=== PATIENT | female | born 1970 | race Caucasian/White ===

== ENCOUNTER 2023-02-24 08:58 | Outpatient (REF) | payer OTHER, SELFPAY ==
--- NOTE | ~2023-02-24 | XR_ITS ---
EXAMINATION: XR WRIST, LEFT XR HAND, LEFT CLINICAL INFORMATION: Pain COMPARISON: None available. TECHNIQUE: PA, lateral, and oblique views of the left wrist and PA, lateral, and oblique views of the left hand FINDINGS: LEFT WRIST: The bones and soft tissues are normal. No fracture. Alignment is anatomic. Joint spaces are maintained. No erosions or soft tissue calcifications. LEFT HAND: The bones and soft tissues are normal. No fracture. Alignment is anatomic. Joint spaces are maintained. No erosions or soft tissue calcifications. XR/XR hand wrist LT IMPRESSION: Normal left hand and wrist.
--- NOTE | ~2023-02-24 | XR_ITS ---
EXAMINATION: XR WRIST, RIGHT XR HAND, RIGHT CLINICAL INFORMATION: Pain COMPARISON: None available. TECHNIQUE: PA, lateral, and oblique views of the right wrist and PA, lateral, and oblique views of the right hand FINDINGS: RIGHT WRIST: The bones and soft tissues are normal. No fracture. Alignment is anatomic. Joint spaces are maintained. No erosions or soft tissue calcifications. RIGHT HAND: The bones and soft tissues are normal. No fracture. Alignment is anatomic. Joint spaces are maintained. No erosions or soft tissue calcifications. XR/XR hand wrist RT IMPRESSION: Normal right hand and wrist.
--- NOTE | ~2023-02-24 | XR_ITS ---
EXAMINATION: XR FOOT, RIGHT CLINICAL INFORMATION: Pain in right foot COMPARISON: None available. TECHNIQUE: AP, lateral, and oblique views of the right foot. FINDINGS: The bones and soft tissues are normal. No fracture. Alignment is anatomic. Joint spaces are maintained. There is plantar calcaneal spur XR/XR foot RT min 3V IMPRESSION: Plantar calcaneal spur
--- NOTE | ~2023-02-24 | XR_ITS ---
EXAMINATION: XR FOOT, LEFT CLINICAL INFORMATION: Pain in left foot COMPARISON: None available. TECHNIQUE: AP, lateral, and oblique views of the left foot. FINDINGS: The bones and soft tissues are normal. No fracture. Alignment is anatomic. Joint spaces are maintained. There is small plantar calcaneal spur XR/XR foot LT min 3V IMPRESSION: Small plantar calcaneus spur
[2023-02-24 10:19] LABS: MANUAL DIFF FLAG NO
[2023-02-24 10:30] LABS: Basophils Absolute Auto 0.1 X10*3/uL (0.0-0.2); Eosinophils Absolute Auto 0.4 X10*3/uL (0.0-0.4); Eosinophils Percent Auto 5.8 % (0-4); Hematocrit 38.6 % (37.0-47.0); Hemoglobin 12.1 g/dl (12.0-16.0); Imm Gran Abs Auto 0.04 X10*3/uL (0.00-0.03); Imm Gran Pct Auto 0.7 % (0.0-0.4); Lymphocytes Absolute Auto 1.8 X10*3/uL (1.2-4.9); Lymphocytes Percent Auto 30.2 % (20-40); Mean Corpuscular HGB Conc 31.3 g/dl (31.0-35.0); Mean Corpuscular Hemoglobin 27.7 pg (27.0-33.0); Mean Corpuscular Volume 88.3 fL (80.0-98.0); Mean Platelet Volume 9.8 fL (9.4-12.3); Monocytes Absolute Auto 0.5 X10*3/uL (0.1-1.2); Monocytes Percent Auto 7.5 % (2-11); Neutrophils Absolute Auto 3.3 x10*3/uL (2.0-8.3); Neutrophils Percent Auto 54.8 % (45-73); Platelet Count 182 X10*3/uL (160-400); Red Blood Count 4.37 X10*6/uL (4.20-5.50); Red Cell Distribution Width 14.3 % (11.0-16.0)
[2023-02-24 11:19] LABS: Alanine Aminotransferase 12 U/L (0-31); Alkaline Phosphatase 59 U/L (39-117); Anion Gap 11 (12-20); Aspartate Amino Transferase 17 U/L (5-31); Bilirubin Total 0.3 mg/dL (0.0-1.0); Blood Urea Nitrogen 21 mg/dL (9-16); C Reactive Protein 0.38 mg/dL (< or = 0.50); Calcium 9.6 mg/dL (8.4-10.2); Carbon Dioxide 25 mmol/L (22-29); Chloride 110 mmol/L (96-108); Estimated Glomerular Filt Rate 49; Glucose Random 94 mg/dL (60-115); Potassium 4.5 mmol/L (3.3-5.1); Sodium 141 mmol/L (135-145); Total Protein 7.1 g/dL (6.5-8.0)
[2023-02-24 11:30] LABS: HBS Num1 0.57 mIU/mL (0-7.99); HBc Num1 0.12 S/CO (0.00-0.79); HBsAGNum1 0.27 S/CO (0.00-0.99); Hepatitis A Antibody IgM 0.22 Index (0-0.79); Hepatitis B Core Antibody Nonreactive (Nonreactive); Hepatitis B Surface Antigen Negative (Negative); ~HepC Num1 0.18 S/CO (0.00-0.79); ~Hepatitis A Antibody IgM Nonreactive (Nonreactive); ~Hepatitis B Surface Antibody NONREACTIVE (Nonreactive); ~Hepatitis C Antibody Nonreactive (Nonreactive)
[2023-02-24 11:52] LABS: Rheumatoid Factor < 13.0 IU/mL (<15.0)
[2023-02-25 06:42] LABS: Erythrocyte Sedimentation Rate 7 MM/HR (0-20)
[2023-02-27 11:53] LABS: Prot Elec - Albumin 4.2 g/dL (3.8-4.8); Prot Elec - Alpha1 0.3 g/dL (0.2-0.3); Prot Elec - Alpha2 0.5 g/dL (0.5-0.9); Prot Elec - Beta 1 0.5 g/dL (0.4-0.6); Prot Elec - Beta 2 0.3 g/dL (0.2-0.5); Prot Elec - Gamma 1.1 g/dL (0.8-1.7)
[2023-02-28 10:54] LABS: Cyclic Citrullinated Peptide <16 UNITS
[2023-02-28 12:48] LABS: IgA 185 mg/dL (47-310); IgG 1181 mg/dL (600-1640); IgM 184 mg/dL (50-300)
== END 2023-02-24 08:59 | disposition home or self-care (01) ==
LOC: HO.XRAY 08:58
PROVIDERS: PCP Nurse Practitioner Adult Health; Visit Provider Student in an Organized Health Care Education/Training Program
DX: Z11.59 Encounter for screening for other viral diseases (principal); L40.50 Arthropathic psoriasis, unspecified; M25.50 Pain in unspecified joint; Z72.89 Other problems related to lifestyle
CPT/HCPCS: 36415; 73110; 73130; 73630; 80053; 82784; 84165; 85025; 85652; 86140; 86200; 86334; 86431; 86704; 86706; 86709; 86803; 87340

== ENCOUNTER 2023-02-24 08:58 | Outpatient (AMB) | payer OTHER, SELFPAY ==
[2023-02-24 09:03] VITALS: BP 132/78; PULSE 90; TEMP 36.3; O2SAT 96; BMI 38.5
--- NOTE | 2023-02-24 09:03 | A.OFFVIS_ITS ---
Intake Vital Signs 02/24/23 09:03 Height 5 ft 7 in Weight 245 lb 13.047 oz BMI 38.5 BP 132/78 Blood Pressure Location Rt brachial Position Sitting Pulse 90 Pulse Source Pulse Oximeter Temp 97.3 F Temp Source Skin Pulse Oximetry (%) 96 Intake Visit Reasons: Psoriatic Arthritis Intake Note: * New pt presents today for PsA consult. * Reports this is her 3rd production lead she sees. * Saw Rhe[facility] in 2015 and [facility] Dr Farfan Computer Assembler Required: No Accompanied by: Self / Same As Patient Allergies lanolin Adverse Reaction (Mild, Verified 02/24/23 09:05) Skin Sensitivity epinephrine Adverse Reaction (Unknown, Verified 02/24/23 09:06) Panic attacks lisinopril Adverse Reaction (Unknown, Verified 02/24/23 09:06) Cough pseudoephedrine Adverse Reaction (Unknown, Verified 02/24/23 09:05) Unknown Medication List - Last Reconciled 02/24/23 by Grayson Sellers MD albuterol sulfate 90 mcg/actuation 2 puffs inhalation Q4-6H PRN aripiprazole 2 mg PO DAILY clonazepam 0.5 mg PO BID PRN cyclobenzaprine 5 mg PO BEDTIME PRN gabapentin 300 - 600 mg PO BEDTIME tamoxifen 20 mg PO DAILY HPI HPI Comments History of Present Illness Details This is a 52-year-old female who presents for evaluation of multiple joint pain. As a child patient has had intermittent skin rashes that were diagnosed as eczema. As an adult patient kept getting recurrent skin rashes, at some point she had a rash all over her scalp, she was prescribed an antifungal shampoo which was not helpful, she was ultimately prescribed a steroid shampoo and it cleared the rash in 2 days. She was told she might have psoriasis but the diagnosis was never officially confirmed by full service vending driver. Currently she has a skin rash in her left breast, she gets rashes behind her ears and on her scalp. She also has a rash where she wears her ring on her left ring finger. Since her teenage years patient has been having joint and muscle pains. She mentions that she had multiple tendon injuries. She states that she got right tennis elbow multiple times but was never evaluated by a physician. She never receives steroid injections for tennis elbow. She states that she has pain and swelling of both hands, feet. Usually worse in the morning, associated with 15- 20 minutes of morning stiffness. She takes Tylenol and/or Aleve 2 to 3 times a week which provide mild to moderate relief. Stiffness improves with walking around the doing yoga. She mentions that she was prescribed a prednisone course by her PCP at some point which provided dramatic relief. She mentions that she gets these flares of generalized fatigue, generalized pain that happen every few years and can last years at a time. She was evaluated by a production lead in 2014 and was prescribed meloxicam which was not very helpful but caused GI discomfort. She was evaluated by Dr. Frafan once last year but unfortunately Dr. Farfan left practice. She has history of left breast cancer diagnosed 02/2021 s/p lumpectomy and radiation. Currently on tamoxifen. She is unaware of any family history of autoimmune rheumatic disease. Denies any history of DVT/PE [facility] Medical History (Updated 02/24/23 @ 10:05 by Grayson Sellers MD) Bipolar 1 disorder Invasive carcinoma of breast Surgical History S/P lumpectomy, left breast [place] teeth extracted Family History Father Diabetes Bladder tumor Prostate cancer Mother COPD (chronic obstructive pulmonary disease) CVD (cardiovascular disease) Social History Household Members: Spouse Household Members Other:: 4 cats Alcohol intake: current Alcohol intake frequency: a few times a week Alcohol type: beer and wine Patient Tobacco Use Status: Never used Tobacco Current occupational status: employed 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 Female Reproductive History Menstrual Total pregnancies: 0 Review of Systems Const Reports fatigue and Reports weakness Eyes Reports blurry vision Resp Reports wheezing GI Reports no additional complaints Musc Reports arthralgias, Reports joint swelling and Reports stiffness Skin/Breast Reports rash Neuro Reports weakness Psych Reports abnormal sleep pattern and Reports anxiety Endo Reports fatigue Aller/Immun Reports wheezing Physical Exam Vital Signs: Last Vital Signs Temp 97.3 F 02/24/23 09:03 Pulse 90 02/24/23 09:03 BP 132/78 02/24/23 09:03 Pulse Ox 96 02/24/23 09:03 BMI result Body Mass Index 38.5 Const General: cooperative, healthy appearing and comfortable Nutritional Appearance: obese morbidly obese Orientation/consciousness: patient oriented x3 HEENT Head: Yes normocephalic and Yes atraumatic Mouth: moist mucous membranes Resp Effort & Inspection: normal respiratory effort and able to speak in complete sentences Auscultation: clear to auscultation bilaterally Skin Other: Breast inspection was done with medical administrator Regina James present in the room Left breast: A circular reddish crusting rash just inferior to the nipple is seen Bilateral scaling rash behind both ears 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 Right 2nd toe swelling Positive MTP squeeze test left foot Left ankle pain medially without swelling Negative straight leg raise test bilaterally Negative Gui test bilaterally Right knee pain with full extension Marlon test 10-16 cm Results Reviewed Results Reviewed: Labs 09/08? CMP unremarkable except for creatinine 1.11 with GFR of 57 CBC unremarkable Labs 02/2022 ?CRISTINA screen negative CRP normal ESR normal A1c 5.9% Assessment & Plan Assessment & Plan (1) Arthralgia of multiple joints: Code(s): M25.50 - Pain in unspecified joint Plan: This is a 52-year-old female with a past medical history of breast cancer s/p lumpectomy, radiation, currently on tamoxifen who presents for evaluation of multiple joint pain. Patient has history of skin rashes that were not confirmed as psoriasis. Upon evaluation today patient has rashes behind both ears and on left ring finger that is suspicious for psoriasis. Patient has some features of inflammatory arthritis as well as fibromyalgia. Will order comprehensive serology to screen for underlying autoimmune rheumatic disease. Check bilateral hand and feet x-rays Plan I spent 47 minutes reviewing patient's chart, evaluating patient, ordering diagnostic workup, counseling patient and documenting in the chart Orders: Orders Cyclic Citrullinated Peptide Today L40.50 - Arthropathic psoriasis, unspecified Comprehensive Met. Panel Today L40.50 - Arthropathic psoriasis, unspecified C Reactive Protein Today L40.50 - Arthropathic psoriasis, unspecified Rheumatoid Factor Today L40.50 - Arthropathic psoriasis, unspecified Complete Blood Count Auto Diff Today L40.50 - Arthropathic psoriasis, unspecified Erythrocyte Sedimentation Rate Today L40.50 - Arthropathic psoriasis, un specified Immunofixation Pnl, Serum Today L40.50 - Arthropathic psoriasis, unspecified Protein Electrophoresis, Serum Today L40.50 - Arthropathic psoriasis, unspecified Hepatitis A,B,C Profile Today Z11.59 - Encounter for screening for other viral diseases XR foot LT min 3V Today L40.50 - Arthropathic psoriasis, unspecified XR foot RT min 3V Today L40.50 - Arthropathic psoriasis, unspecified XR hand wrist LT Today L40.50 - Arthropathic psoriasis, unspecified XR hand wrist RT Today L40.50 - Arthropathic psoriasis, unspecified Coding Level of Care Code New Pt Level 4 (16567) Diagnoses Arthralgia of multiple joints M25.50
== END 2023-02-24 09:54 | disposition home or self-care (01) ==
PROVIDERS: PCP Nurse Practitioner Adult Health; Visit Provider Student in an Organized Health Care Education/Training Program
DX: M25.50 Pain in unspecified joint (principal)
CPT/HCPCS: 99204

== ENCOUNTER 2023-05-05 09:13 | Outpatient (AMB) | payer OTHER, SELFPAY ==
--- NOTE | 2023-05-05 09:19 | A.OFFVIS_ITS ---
Intake Vital Signs 05/05/23 09:25 Height 5 ft 7 in Weight 247 lb 5.738 oz BMI 38.7 BP 102/70 Blood Pressure Location Rt brachial Position Sitting Pulse 91 Pulse Source Pulse Oximeter Temp 97.5 F Temp Source Skin Pulse Oximetry (%) 100 Oxygen Delivery Method Room Air Intake Visit Reasons: PsA Intake Note: Pt presents today for follow up and test results. Fuel Cell Technician Required: No Accompanied by: Self / Same As Patient Allergies lanolin Adverse Reaction (Mild, Verified 05/05/23 09:25) Skin Sensitivity epinephrine Adverse Reaction (Unknown, Verified 05/05/23 09:25) Panic attacks lisinopril Adverse Reaction (Unknown, Verified 05/05/23 09:25) Cough pseudoephedrine Adverse Reaction (Unknown, Verified 05/05/23 09:25) Unknown Medication List - Last Reconciled 05/05/23 by Grayson Sellers MD albuterol sulfate 90 mcg/actuation 2 puffs inhalation Q4-6H PRN aripiprazole 2 mg PO DAILY clonazepam 0.5 mg PO BID PRN cyclobenzaprine 5 mg PO BEDTIME PRN gabapentin 300 - 600 mg PO BEDTIME tamoxifen 20 mg PO DAILY HPI HPI Comments History of Present Illness Details Patient returns for follow-up after completion of her diagnostic workup. Continues to feel about the same. Continues to have left 2nd toe pain. Intermittent pain in the hands. No recent skin rashes. Initial history: This is a 52-year-old female who presents for evaluation of multiple joint pain. As a child patient has had intermittent skin rashes that were diagnosed as eczema. As an adult patient kept getting recurrent skin rashes, at some point she had a rash all over her scalp, she was prescribed an antifungal shampoo which was not helpful, she was ultimately prescribed a steroid shampoo and it cleared the rash in 2 days. She was told she might have psoriasis but the diagnosis was never officially confirmed by law office manager. Currently she has a skin rash in her left breast, she gets rashes behind her ears and on her scalp. She also has a rash where she wears her ring on her left ring finger. Since her teenage years patient has been having joint and muscle pains. She mentions that she had multiple tendon injuries. She states that she got right tennis elbow multiple times but was never evaluated by a physician. She never receives steroid injections for tennis elbow. She states that she has pain and swelling of both hands, feet. Usually worse in the morning, associated with 15- 20 minutes of morning stiffness. She takes Tylenol and/or Aleve 2 to 3 times a week which provide mild to moderate relief. Stiffness improves with walking around the doing yoga. She mentions that she was prescribed a prednisone course by her PCP at some point which provided dramatic relief. She mentions that she gets these flares of generalized fatigue, generalized pain that happen every few years and can last years at a time. She was evaluated by a safety compliance specialist in 2014 and was prescribed meloxicam which was not very helpful but caused GI discomfort. She was evaluated by Dr. Farfan once last year but unfortunately Dr. Farfan left practice. She has history of left breast cancer diagnosed 02/2021 s/p lumpectomy and radiation. Currently on tamoxifen. She is unaware of any family history of autoimmune rheumatic disease. Denies any history of DVT/PE [facility] Medical History (Updated 05/05/23 @ 11:38 by Grayson Sellers MD) Invasive carcinoma of breast Bipolar 1 disorder Surgical History S/P lumpectomy, left breast [place] teeth extracted Family History Father Diabetes Bladder tumor Prostate cancer Mother COPD (chronic obstructive pulmonary disease) CVD (cardiovascular disease) Social History Household Members: Spouse Household Members Other:: 4 cats Alcohol intake: current Alcohol intake frequency: a few times a week Alcohol type: beer and wine Patient Tobacco Use Status: Never used Tobacco Current occupational status: employed 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 Review of Systems [facility] Reports arthralgias, Reports joint swelling and Reports stiffness Physical Exam Vital Signs: Last Vital Signs Temp 97.5 F 05/05/23 09:25 Pulse 91 05/05/23 09:25 BP 102/70 05/05/23 09:25 Pulse Ox 100 05/05/23 09:25 Oxygen Delivery Method Room Air 05/05/23 09:25 BMI result Body Mass Index 38.7 Const General: cooperative, healthy appearing and comfortable Nutritional Appearance: obese morbidly obese Orientation/consciousness: patient oriented x3 HEENT Head: Yes normocephalic and Yes atraumatic Resp Effort & Inspection: normal respiratory effort and able to speak in complete sentences Neuro General: patient oriented x3 Extrem Other: Left wrist pain with full flexion Negative MCP squeeze test bilaterally no swollen MCPs or PIPs or PIPs Right 3rd extensor tender tenderness Few fibromyalgia tender points Nail pitting in the left ring finger Right 2nd and 3rd MTP tenderness . Right 2nd toe swelling Positive MTP squeeze test left foot Results Reviewed Results Reviewed: Labs 09/08? CMP unremarkable except for creatinine 1.11 with GFR of 57 CBC unremarkable Labs 02/2022 ?CRISTINA screen negative CRP normal ESR normal A1c 5.9% Assessment & Plan Assessment & Plan (1) Arthralgia of multiple joints: Code(s): M25.50 - Pain in unspecified joint Plan: This is a 52-year-old female with a past medical history of breast cancer s/p lumpectomy, radiation, currently on tamoxifen who presents for evaluation of multiple joint pain. Patient has history of skin rashes that were not confirmed as psoriasis. Upon evaluation patient has few tender tendons and swollen right 2nd toe. Comprehensive serology is negative. Labs showing normal inflammatory markers. Normal x-rays of both hands, wrists, feet. Clinical picture suspicious for seronegative arthritis, likely early psoriatic arthritis. Discussed DMARDs. Patient would like to proceed. Start methotrexate 15 mg weekly for 2 weeks then 20 mg weekly plus folic acid 1 mg daily Labs before next visit in 2 months (2) long term care pharmacist methotrexate user: Code(s): Z79.631 - long term care pharmacist (current) use of antimetabolite agent Plan: Monitor safety labs Plan I spent 27 minutes reviewing patient's chart, evaluating patient, ordering diagnostic workup, counseling patient and documenting in the chart Orders: Orders Comprehensive Met. Panel 2 Months Z79.631 - long term care pharmacist (current) use of antimetabolite agent Complete Blood Count Auto Diff 2 Months Z79.631 - halfway (current) use of antimetabolite agent C Reactive Protein 2 Months Z79.631 - halfway (current) use of antimetabolite agent Erythrocyte Sedimentation Rate 2 Months Z79.631 - long term care pharmacist (current) use of antimetabolite agent T Spot TB 2 Months Z11.7 - Encounter for testing for latent tuberculosis infection Medications: New methotrexate sodium Take 6 tabs by mouth once weekly for 2 weeks then 8 tabs once weekly 64 tabs 0RF folic acid 1 mg PO DAILY 90 tabs 1RF Coding Level of Care Code Est Pt Level 4 (75667) Diagnoses Arthralgia of multiple joints M25.50 long term care pharmacist methotrexate user Z79.631
[2023-05-05 09:25] VITALS: BP 102/70; PULSE 91; TEMP 36.4; O2SAT 100; BMI 38.7
== END 2023-05-05 09:52 | disposition home or self-care (01) ==
PROVIDERS: PCP Nurse Practitioner Adult Health; Visit Provider Student in an Organized Health Care Education/Training Program
DX: M25.50 Pain in unspecified joint (principal); Z79.631 Long term (current) use of antimetabolite agent
CPT/HCPCS: 99214

== ENCOUNTER → 2023-05-05 09:13 | Outpatient (BNVA) | payer OTHER, SELFPAY | PROVIDERS: PCP Nurse Practitioner Adult Health; Visit Provider Student in an Organized Health Care Education/Training Program ==

== ENCOUNTER 2023-06-30 10:52 | Outpatient (REF) | payer OTHER, SELFPAY ==
[2023-06-30 12:59] LABS: MANUAL DIFF FLAG NO
[2023-06-30 13:01] LABS: Basophils Percent Auto 0.8 % (0-2); Eosinophils Absolute Auto 0.2 X10*3/uL (0.0-0.4); Eosinophils Percent Auto 5.4 % (0-4); Hematocrit 37.5 % (37.0-47.0); Hemoglobin 11.7 g/dl (12.0-16.0); Imm Gran Abs Auto 0.02 X10*3/uL (0.00-0.03); Imm Gran Pct Auto 0.5 % (0.0-0.4); Lymphocytes Absolute Auto 1.4 X10*3/uL (1.2-4.9); Mean Corpuscular HGB Conc 31.2 g/dl (31.0-35.0); Mean Corpuscular Hemoglobin 27.3 pg (27.0-33.0); Mean Corpuscular Volume 87.6 fL (80.0-98.0); Mean Platelet Volume 10.7 fL (9.4-12.3); Monocytes Absolute Auto 0.3 X10*3/uL (0.1-1.2); Monocytes Percent Auto 8.5 % (2-11); Neutrophils Absolute Auto 1.9 x10*3/uL (2.0-8.3); Neutrophils Percent Auto 48.8 % (45-73); Platelet Count 179 X10*3/uL (160-400); Red Blood Count 4.28 X10*6/uL (4.20-5.50); Red Cell Distribution Width 15.9 % (11.0-16.0); White Blood Count 3.9 X10*3/uL (4.8-10.8)
[2023-06-30 13:16] LABS: Alanine Aminotransferase 22 U/L (0-31); Albumin Level 4.1 g/dL (3.5-5.0); Alkaline Phosphatase 62 U/L (39-117); Anion Gap 12 (12-20); Aspartate Amino Transferase 24 U/L (5-31); Bilirubin Total 0.3 mg/dL (0.0-1.0); Blood Urea Nitrogen 15 mg/dL (9-16); C Reactive Protein 1.23 mg/dL (< or = 0.50); Calcium 9.3 mg/dL (8.4-10.2); Carbon Dioxide 27 mmol/L (22-29); Chloride 106 mmol/L (96-108); Estimated Glomerular Filt Rate 49; Glucose Random 103 mg/dL (60-115); Sodium 141 mmol/L (135-145); Total Protein 7.1 g/dL (6.5-8.0)
[2023-06-30 13:54] LABS: Erythrocyte Sedimentation Rate 10 MM/HR (0-20)
[2023-07-02 23:54] LABS: TS Negative Control Passed; TS Panel A 1; TS Panel B 0; TS Positive Control Passed; TSpotTB Negative (Negative)
== END 2023-06-30 10:53 | disposition home or self-care (01) ==
LOC: HO.10HDL 10:52
PROVIDERS: Visit Provider Student in an Organized Health Care Education/Training Program
DX: Z11.7 Encounter for testing for latent tuberculosis infection (principal); Z79.631 Long term (current) use of antimetabolite agent
CPT/HCPCS: 36415; 80053; 85025; 85652; 86140; 86481

== ENCOUNTER 2023-07-06 09:51 | Outpatient (AMB) | payer OTHER, SELFPAY ==
--- NOTE | 2023-07-06 09:59 | A.OFFVIS_ITS ---
Intake Vital Signs 07/06/23 10:00 Height 5 ft 7 in Weight 251 lb 5.231 oz BMI 39.4 BP 118/76 Blood Pressure Location Rt brachial Position Sitting Pulse 86 Pulse Source Pulse Oximeter Temp 97.7 F Temp Source Skin Pulse Oximetry (%) 97 Oxygen Delivery Method Room Air Intake Visit Reasons: PsA Intake Note: Pt last seen 05/05/23 presents today for follow up and test results. Needs MTX refill today. Oracle Application Architect Required: No Accompanied by: Self / Same As Patient Allergies lanolin Adverse Reaction (Mild, Verified 07/06/23 10:04) Skin Sensitivity epinephrine Adverse Reaction (Unknown, Verified 07/06/23 10:04) Panic attacks lisinopril Adverse Reaction (Unknown, Verified 07/06/23 10:04) Cough pseudoephedrine Adverse Reaction (Unknown, Verified 07/06/23 10:04) Unknown Medication List - Last Reconciled 07/06/23 by Grayson Sellers MD albuterol sulfate 90 mcg/actuation 2 puffs inhalation Q4-6H PRN aripiprazole 2 mg PO DAILY clonazepam 0.5 mg PO BID PRN cyclobenzaprine 5 mg PO BEDTIME PRN folic acid 1 mg PO DAILY gabapentin 300 - 600 mg PO BEDTIME methotrexate sodium 20 mg (8 x 2.5 mg) PO QWEEK tamoxifen 20 mg PO DAILY HPI HPI Comments History of Present Illness Details 53-year-old female with seronegative art hritis (likely PsA) returns for follow-up. She has been on methotrexate for the last 2 months. She cannot think of any side effects related to methotrexate. She states that she has been feeling little bit better overall in terms of her joint pain and stiffness. A few days ago however she had abrupt onset of left index swelling and pain. She is having pain on the outer aspect of both her hips, worse when she is lying down or trying to sleep. She denies any skin rashes. She held the tamoxifen for about a week and she felt that some of her joint pains have improved. She has a follow-up appointment with her oncologist later this month. She Initial history: This is a 52-year-old female who presents for evaluation of multiple joint pain. As a child patient has had intermittent skin rashes that were diagnosed as eczema. As an adult patient kept getting recurrent skin rashes, at some point she had a rash all over her scalp, she was prescribed an antifungal shampoo which was not helpful, she was ultimately prescribed a steroid shampoo and it cleared the rash in 2 days. She was told she might have psoriasis but the diagnosis was never officially confirmed by spiral binder. Currently she has a skin rash in her left breast, she gets rashes behind her ears and on her scalp. She also has a rash where she wears her ring on her left ring finger. Since her teenage years patient has been having joint and muscle pains. She mentions that she had multiple tendon injuries. She states that she got right tennis elbow multiple times but was never evaluated by a physician. She never receives steroid injections for tennis elbow. She states that she has pain and swelling of both hands, feet. Usually worse in the morning, associated with 15- 20 minutes of morning stiffness. She takes Tylenol and/or Aleve 2 to 3 times a week which provide mild to moderate relief. Stiffness improves with walking around the doing yoga. She mentions that she was prescribed a prednisone course by her PCP at some point which provided dramatic relief. She mentions that she gets these flares of generalized fatigue, generalized pain that happen every few years and can last years at a time. She was evaluated by a cardiac cath lab technologist in 2014 and was prescribed meloxicam which was not very helpful but caused GI discomfort. She was evaluated by Dr. Farfan once last year but unfortunately Dr. Farfan left practice. She has history of left breast cancer diagnosed 02/2021 s/p lumpectomy and radiation. Currently on tamoxifen. She is unaware of any family history of autoimmune rheumatic disease. Denies any history of DVT/PE [facility] Medical History (Updated 07/06/23 @ 10:44 by Grayson Sellers MD) Invasive carcinoma of breast Bipolar 1 disorder Surgical History S/P lumpectomy, left breast [place] teeth extracted Family History Father Diabetes Bladder tumor Prostate cancer Mother COPD (chronic obstructive pulmonary disease) CVD (cardiovascular disease) Social History Household Members: Spouse Household Members Other:: 4 cats Alcohol intake: current Alcohol intake frequency: a few times a week Alcohol type: beer and wine Patient Tobacco Use Status: Never used Tobacco Current occupational status: employed 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 Review of Systems [facility] Reports arthralgias, Reports joint swelling and Reports stiffness Physical Exam Vital Signs: Last Vital Signs Temp 97.7 F 07/06/23 10:00 Pulse 86 07/06/23 10:00 BP 118/76 07/06/23 10:00 Pulse Ox 97 07/06/23 10:00 Oxygen Delivery Method Room Air 07/06/23 10:00 BMI result Body Mass Index 39.4 Const General: cooperative, healthy appearing and comfortable Nutritional Appearance: obese morbidly obese Orientation/consciousness: patient oriented x3 HEENT Head: Yes normocephalic and Yes atraumatic Resp Effort & Inspection: normal respiratory effort and able to speak in complete sentences Neuro General: patient oriented x3 Extrem Other: Negative MCP squeeze test bilaterally no swollen MCPs or PIPs or PIPs Right 3rd extensor tender tenderness Few fibromyalgia tender points Nail pitting in the left ring finger and right 5th finger Right 2nd and 3rd MTP tenderness . Swelling at the base of the right 2nd toe Positive MTP squeeze test left foot Right trochanteric bursa area tenderness with negative Earl's test Results Reviewed Results Reviewed: Labs 09/08? CMP unremarkable except for creatinine 1.11 with GFR of 57 CBC unremarkable Labs 02/2022 ?CRISTINA screen negative CRP normal ESR normal A1c 5.9% Assessment & Plan Assessment & Plan (1) Seronegative arthritis: Code(s): M13.80 - Other specified arthritis, unspecified site Plan: This is a 52-year-old female with a past medical history of breast cancer s/p lumpectomy, radiation, currently on tamoxifen who presents for evaluation of multiple joint pain.? Patient has history of skin rashes that were not confirmed as psoriasis.? Upon evaluation patient has few tender tendons and swollen right 2nd toe.? Some nail pitting. Comprehensive serology is negative.? Clinical picture suspicious for seronegative arthritis, likely early psoriatic arthritis.? Discussed DMARDs. 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
[2023-07-06 10:00] VITALS: BP 118/76; PULSE 86; TEMP 36.5; O2SAT 97; BMI 39.4
== END 2023-07-06 10:38 | disposition home or self-care (01) ==
PROVIDERS: PCP Nurse Practitioner Adult Health; Visit Provider Student in an Organized Health Care Education/Training Program
DX: M13.80 Other specified arthritis, unspecified site (principal); Z79.631 Long term (current) use of antimetabolite agent; Z71.85 Encounter for immunization safety counseling
CPT/HCPCS: 99214

== ENCOUNTER → 2023-07-06 09:51 | Outpatient (BNVA) | payer OTHER, SELFPAY | PROVIDERS: PCP Nurse Practitioner Adult Health; Visit Provider Student in an Organized Health Care Education/Training Program ==

== ENCOUNTER 2023-09-20 12:29 | Outpatient (REF) | payer OTHER, SELFPAY ==
[2023-09-20 12:39] LABS: MANUAL DIFF FLAG NO
[2023-09-20 12:48] LABS: Basophils Absolute Auto 0.1 X10*3/uL (0.0-0.2); Basophils Percent Auto 1.1 % (0-2); Eosinophils Absolute Auto 0.2 X10*3/uL (0.0-0.4); Eosinophils Percent Auto 4.5 % (0-4); Hematocrit 34.1 % (37.0-47.0); Hemoglobin 11.1 g/dl (12.0-16.0); Imm Gran Abs Auto 0.01 X10*3/uL (0.00-0.03); Imm Gran Pct Auto 0.2 % (0.0-0.4); Lymphocytes Percent Auto 36.6 % (20-40); Mean Corpuscular HGB Conc 32.6 g/dl (31.0-35.0); Mean Corpuscular Hemoglobin 28.3 pg (27.0-33.0); Mean Platelet Volume 9.9 fL (9.4-12.3); Monocytes Absolute Auto 0.3 X10*3/uL (0.1-1.2); Monocytes Percent Auto 6.2 % (2-11); Neutrophils Absolute Auto 2.8 x10*3/uL (2.0-8.3); Neutrophils Percent Auto 51.4 % (45-73); Platelet Count 191 X10*3/uL (160-400); Red Blood Count 3.92 X10*6/uL (4.20-5.50); Red Cell Distribution Width 16.2 % (11.0-16.0); White Blood Count 5.4 X10*3/uL (4.8-10.8)
[2023-09-20 13:26] LABS: Erythrocyte Sedimentation Rate 8 MM/HR (0-20)
[2023-09-20 13:48] LABS: Alanine Aminotransferase 45 U/L (0-31); Albumin Level 4.1 g/dL (3.5-5.0); Alkaline Phosphatase 54 U/L (39-117); Anion Gap 8 (12-20); Aspartate Amino Transferase 36 U/L (5-31); Bilirubin Total 0.3 mg/dL (0.0-1.0); Blood Urea Nitrogen 19 mg/dL (9-16); Calcium 9.4 mg/dL (8.4-10.2); Carbon Dioxide 27 mmol/L (22-29); Chloride 111 mmol/L (96-108); Estimated Glomerular Filt Rate 56; Glucose Random 85 mg/dL (60-115); Potassium 4.2 mmol/L (3.3-5.1); Sodium 142 mmol/L (135-145)
== END 2023-09-20 12:30 | disposition home or self-care (01) ==
LOC: HO.LAB 12:29
PROVIDERS: Visit Provider Student in an Organized Health Care Education/Training Program
DX: Z11.51 Encounter for screening for human papillomavirus (HPV) (principal); Z79.631 Long term (current) use of antimetabolite agent
CPT/HCPCS: 36415; 80053; 85025; 85652; 86140

== ENCOUNTER 2023-09-27 09:26 | Outpatient (AMB) | payer OTHER, SELFPAY ==
[2023-09-27 09:27] VITALS: BP 122/80; PULSE 79; O2SAT 96; BMI 38.9
--- NOTE | 2023-09-27 09:27 | A.OFFVIS_ITS ---
Intake Vital Signs 3 09/27/23 09:27 Height 5 ft 7 in Weight 248 lb 10.903 oz BMI 38.9 BP 122/80 Blood Pressure Location Rt brachial Position Sitting Pulse 79 Pulse Source Pulse Oximeter Pulse Oximetry (%) 96 Oxygen Delivery Method Room Air Intake Visit Reasons: PsA Intake Note: Patient last seen 07/06/23 presents today for follow up and test results. Off tamoxifen for a month. she is back on it has oncology appt in 2 weeks. Off MTX due to elevated LFT's, has skipped 1 dose Contract Runner Required: No Natural Resource Officer: Natural Resource Officer Present Accompanied by: Self / Same As Patient Allergies lanolin Adverse Reaction (Mild, Verified 09/27/23 09:30) Skin Sensitivity epinephrine Adverse Reaction (Unknown, Verified 09/27/23 09:30) Panic attacks lisinopril Adverse Reaction (Unknown, Verified 09/27/23 09:30) Cough pseudoephedrine Adverse Reaction (Unknown, Verified 09/27/23 09:30) Unknown Medication List - Last Reconciled 09/27/23 by Grayson Sellers MD albuterol sulfate 90 mcg/actuation 2 puffs inhalation Q4-6H PRN aripiprazole 2 mg PO DAILY clonazepam 0.5 mg PO BID PRN cyclobenzaprine 5 mg PO BEDTIME PRN folic acid 1 mg PO DAILY gabapentin 300 - 600 mg PO BEDTIME tamoxifen 20 mg PO DAILY HPI HPI Comments 2 History of Present Illness0 Details 53-year-old female with seronegative art hritis (likely PsA) returns for follow-up. Patient discontinued methotrexate about a week ago when I called her due to elevated LFTs. She denied any excessive alcohol use prior to blood draw. She denies any recent illnesses. She stated that methotrexate had helped some of her pains in her feet an elbow but she continued to have pain. She held her tamoxifen for a few weeks and did not noticed a difference with her pains. She states that currently she takes ibuprofen 400-800 mg a few days a week and the help with her pain and fatigue. She noticed a small rash behind her ear that she believes is due to psoriasis. She mentioned that the itchy rash just above her left nipple has improved with creams. Initial history: This is a 52-year-old female who presents for evaluation of multiple joint pain. As a child patient has had intermittent skin rashes that were diagnosed as eczema. As an adult patient kept getting recurrent skin rashes, at some point she had a rash all over her scalp, she was prescribed an antifungal shampoo which was not helpful, she was ultimately prescribed a steroid shampoo and it cleared the rash in 2 days. She was told she might have psoriasis but the diagnosis was never officially confirmed by property assessment monitor. Currently she has a skin rash in her left breast, she gets rashes behind her ears and on her scalp. She also has a rash where she wears her ring on her left ring finger. Since her teenage years patient has been having joint and muscle pains. She mentions that she had multiple tendon injuries. She states that she got right tennis elbow multiple times but was never evaluated by a physician. She never receives steroid injections for tennis elbow. She states that she has pain and swelling of both hands, feet. Usually worse in the morning, associated with 15- 20 minutes of morning stiffness. She takes Tylenol and/or Aleve 2 to 3 times a week which provide mild to moderate relief. Stiffness improves with walking around the doing yoga. She mentions that she was prescribed a prednisone course by her PCP at some point which provided dramatic relief. She mentions that she gets these flares of generalized fatigue, generalized pain that happen every few years and can last years at a time. She was evaluated by a curbing stonecutter in 2014 and was prescribed meloxicam which was not very helpful but caused GI discomfort. She was evaluated by Dr. Farfan once last year but unfortunately Dr. Farfan left practice. She has history of left breast cancer diagnosed 02/2021 s/p lumpectomy and radiation. Currently on tamoxifen. She is unaware of any family history of autoimmune rheumatic disease. 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 Review of Systems [facility] Reports arthralgias, Reports joint swelling and Reports stiffness Skin/Breast Reports rash Physical Exam Vital Signs: Last Vital Signs Pulse 79 09/27/23 09:27 BP 122/80 09/27/23 09:27 Pulse Ox 96 09/27/23 09:27 Oxygen Delivery Method Room Air 09/27/23 09:27 BMI result Body Mass Index 38.9 Const General: cooperative, healthy appearing and comfortable Nutritional Appearance: obese morbidly obese Orientation/consciousness: patient oriented x3 HEENT Head: Yes normocephalic and Yes atraumatic Resp Effort & Inspection: normal respiratory effort and able to speak in complete sentences Skin Other: Left breast inspection performed with esthetician and manager medical spa [employer] present. It showed a tiny scaly patch just above her left areola Neuro General: patient oriented x3 Extrem Other: Negative MCP squeeze test bilaterally no swollen MCPs or PIPs or PIPs Right wrist pain with full extension Few fibromyalgia tender points Nail pitting in the left ring finger and right 5th finger Right 2nd and 3rd MTP tenderness . Swelling at the base of the right 2nd toe Positive MTP squeeze test left foot Results Reviewed Results Reviewed: Labs 09/08? CMP unremarkable except for creatinine 1.11 with GFR of 57 CBC unremarkable Labs 02/2022 ?CRISTINA screen negative CRP normal ESR normal A1c 5.9% Assessment & Plan Assessment & Plan (1) Seronegative arthritis: Code(s): M13.80 - Other specified arthritis, unspecified site Plan: This is a 53-year-old female with a past medical history of breast cancer s/p lumpectomy, radiation, currently on tamoxifen who presents for evaluation of multiple joint pain.? Patient has history of skin rashes that were not confirmed as psoriasis.? Upon initial evaluation patient has few tender tendons and swollen right 2nd toe.? Some nail pitting. Comprehensive serology is negative.? Clinical picture suspicious for seronegative arthritis, likely early psoriatic arthritis.? Patient took methotrexate for 4-5 months. It helps some of her joint pains, especially her feet but not all her pains. Discontinued last week due to transaminitis. Patient currently doing well with ibuprofen 400-800 mg as needed for joint pain. Discussed long-term side effects of NSAIDs, such as stomach ulcers, GI bleeding, hypertension, nephrotoxicity, Increased cardiovascular events. Advised patient to use lowest effective dose. Labs before next visit in 3 month (2) longterm (current) use of non-steroidal anti-inflammatories (nsaid): Code(s): Z79.1 - buttermaker continuous churn (current) use of non-steroidal anti-inflammatories (NSAID) Plan: Monitor safety lab Plan I spent 27 minutes reviewing patient's chart, evaluating patient, ordering diagnostic workup, counseling patient and documenting in the chart Orders: Orders 2 Comprehensive Met. Panel 3 Months M13.80 - Other specified arthritis, unspecified site, Z79.1 - longterm (current) use of non-steroidal anti- inflammatories (NSAID) C Reactive Protein 3 Months M13.80 - Other specified arthritis, unspecified site, Z79.1 - longterm (current) use of non-steroidal anti-inflammatories (NSAID) Complete Blood Count Auto Diff 3 Months M13.80 - Other specified arthritis, unspecified site, Z79.1 - longterm (current) use of non-steroidal anti- inflammatories (NSAID) Erythrocyte Sedimentation Rate 3 Months M13.80 - Other specified arthritis, unspecified site, Z79.1 - buttermaker continuous churn (current) use of non-steroidal anti- inflammatories (NSAID) Coding Level of Care Code Est Pt Level 4 (62226) Diagnoses Seronegative arthritis M13.80 longterm (current) use of non-steroidal anti-inflammatories (nsaid) Z79.1
== END 2023-09-27 10:02 | disposition home or self-care (01) ==
PROVIDERS: PCP Nurse Practitioner Adult Health; Visit Provider Student in an Organized Health Care Education/Training Program
DX: M13.80 Other specified arthritis, unspecified site (principal); Z79.1 Long term (current) use of non-steroidal anti-inflammatories (NSAID)
CPT/HCPCS: 99214

== ENCOUNTER → 2023-09-27 09:26 | Outpatient (BNVA) | payer OTHER, SELFPAY | PROVIDERS: PCP Nurse Practitioner Adult Health; Visit Provider Student in an Organized Health Care Education/Training Program ==

== ENCOUNTER 2023-12-15 09:24 | Outpatient (REF) | payer OTHER, SELFPAY ==
[2023-12-15 10:21] LABS: MANUAL DIFF FLAG NO
[2023-12-15 10:31] LABS: Basophils Absolute Auto 0.1 X10*3/uL (0.0-0.2); Basophils Percent Auto 1.5 % (0-2); Eosinophils Absolute Auto 0.3 X10*3/uL (0.0-0.4); Eosinophils Percent Auto 5.1 % (0-4); Hematocrit 40.5 % (37.0-47.0); Hemoglobin 12.9 g/dl (12.0-16.0); Imm Gran Abs Auto 0.01 X10*3/uL (0.00-0.03); Imm Gran Pct Auto 0.2 % (0.0-0.4); Lymphocytes Absolute Auto 1.7 X10*3/uL (1.2-4.9); Mean Corpuscular HGB Conc 31.9 g/dl (31.0-35.0); Mean Corpuscular Hemoglobin 28.5 pg (27.0-33.0); Mean Corpuscular Volume 89.4 fL (80.0-98.0); Mean Platelet Volume 10.6 fL (9.4-12.3); Monocytes Absolute Auto 0.5 X10*3/uL (0.1-1.2); Neutrophils Absolute Auto 2.8 x10*3/uL (2.0-8.3); Neutrophils Percent Auto 52.2 % (45-73); Platelet Count 168 X10*3/uL (160-400); Red Blood Count 4.53 X10*6/uL (4.20-5.50); Red Cell Distribution Width 14.6 % (11.0-16.0); White Blood Count 5.3 X10*3/uL (4.8-10.8)
[2023-12-15 10:41] LABS: Alanine Aminotransferase 16 U/L (0-31); Albumin Level 4.2 g/dL (3.5-5.0); Alkaline Phosphatase 50 U/L (39-117); Anion Gap 14 (12-20); Aspartate Amino Transferase 20 U/L (5-31); Bilirubin Total 0.3 mg/dL (0.0-1.0); Blood Urea Nitrogen 19 mg/dL (9-16); C Reactive Protein 0.21 mg/dL (< or = 0.50); Calcium 9.4 mg/dL (8.4-10.2); Carbon Dioxide 24 mmol/L (22-29); Chloride 109 mmol/L (96-108); Estimated Glomerular Filt Rate 55; Glucose Random 96 mg/dL (60-115); Potassium 4.3 mmol/L (3.3-5.1); Sodium 143 mmol/L (135-145); Total Protein 7.1 g/dL (6.5-8.0)
[2023-12-15 11:25] LABS: Erythrocyte Sedimentation Rate 5 MM/HR (0-20)
== END 2023-12-15 09:25 | disposition home or self-care (01) ==
LOC: HO.10HDL 09:24
PROVIDERS: Visit Provider Student in an Organized Health Care Education/Training Program
DX: M13.80 Other specified arthritis, unspecified site (principal); Z79.1 Long term (current) use of non-steroidal anti-inflammatories (NSAID)
CPT/HCPCS: 36415; 80053; 85025; 85652; 86140

== ENCOUNTER 2023-12-19 09:55 | Outpatient (AMB) | payer OTHER, SELFPAY ==
--- NOTE | 2023-12-19 10:01 | MHC.OFFVIS ---
Vital Signs 12/19/23 10:06 Height 5 ft 7 in Weight 255 lb 4.725 oz BMI 40.0 BP 126/72 Blood Pressure Location Rt brachial Position Sitting Pulse 75 Pulse Source Pulse Oximeter Pulse Oximetry (%) 98 Oxygen Delivery Method Room Air Intake Visit Reasons: PsA Intake Note: Pt reports R elbow pain and itchy, flaky scalp x a few weeks. Director Emergency Required: No Accompanied by: Self / Same As Patient Allergies lanolin Adverse Reaction (Mild, Verified 12/19/23 10:08) Skin Sensitivity epinephrine Adverse Reaction (Unknown, Verified 12/19/23 10:08) Panic attacks lisinopril Adverse Reaction (Unknown, Verified 12/19/23 10:08) Cough pseudoephedrine Adverse Reaction (Unknown, Verified 12/19/23 10:08) Unknown Medication List - Last Reconciled 12/19/23 by Grayson Sellers MD albuterol sulfate 90 mcg/actuation 2 puffs inhalation Q4-6H PRN aripiprazole 2 mg PO DAILY clonazepam 0.5 mg PO BID PRN cyclobenzaprine 5 mg PO BEDTIME PRN folic acid 1 mg PO DAILY gabapentin 300 - 600 mg PO BEDTIME ibuprofen 400 mg PO Q8H PRN tamoxifen 20 mg PO DAILY HPI Comments Details: 53-year-old female with seronegative arthritis (likely PsA) returns for follow-up. Patient states that she is overall doing reasonably well. Currently she takes ibuprofen approximately 400 mg 3 times a week. She continues to have pains in the middle of the night and in the morning. Morning stiffness lasts a few hours. Gets pain in her elbows, feet, ankles. She was having symptoms suggestive of plantar fasciitis and recently evaluated by a senior project accountant. The flaky rash on her breast has resolved. Continues to have intermittent flaky rash on her scalp and behind her ears. Overall she is doing better Initial history: This is a 52-year-old female who presents for evaluation of multiple joint pain. As a child patient has had intermittent skin rashes that were diagnosed as eczema. As an adult patient kept getting recurrent skin rashes, at some point she had a rash all over her scalp, she was prescribed an antifungal shampoo which was not helpful, she was ultimately prescribed a steroid shampoo and it cleared the rash in 2 days. She was told she might have psoriasis but the diagnosis was never officially confirmed by restaurant delivery driver. Currently she has a skin rash in her left breast, she gets rashes behind her ears and on her scalp. She also has a rash where she wears her ring on her left ring finger. Since her teenage years patient has been having joint and muscle pains. She mentions that she had multiple tendon injuries. She states that she got right tennis elbow multiple times but was never evaluated by a physician. She never receives steroid injections for tennis elbow. She states that she has pain and swelling of both hands, feet. Usually worse in the morning, associated with 15-20 minutes of morning stiffness. She takes Tylenol and/or Aleve 2 to 3 times a week which provide mild to moderate relief. Stiffness improves with walking around the doing yoga. She mentions that she was prescribed a prednisone course by her PCP at some point which provided dramatic relief. She mentions that she gets these flares of generalized fatigue, generalized pain that happen every few years and can last years at a time. She was evaluated by a exterminator helper in 2014 and was prescribed meloxicam which was not very helpful but caused GI discomfort. She was evaluated by Dr. Farfan once last year but unfortunately Dr. Farfan left practice. She has history of left breast cancer diagnosed 02/2021 s/p lumpectomy and radiation. Currently on tamoxifen. She is unaware of any family history of autoimmune rheumatic disease. Denies any history of DVT/PE [facility] Medical History Invasive carcinoma of breast Bipolar 1 disorder Surgical History S/P lumpectomy, left breast [place] teeth extracted Family History Father Diabetes Bladder tumor Prostate cancer Mother COPD (chronic obstructive pulmonary disease) CVD (cardiovascular disease) Social History Household Members: Spouse Household Members Other:: 4 cats Alcohol intake: current Alcohol intake frequency: a few times a week Alcohol type: beer and wine Patient Tobacco Use Status: Never used Tobacco Current occupational status: employed 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 Female Reproductive History Menstrual Total pregnancies: 0 Review of Systems [facility] Reports arthralgias and Reports stiffness Skin/Breast Reports rash Physical Exam Vital Signs: Last Vital Signs Pulse 75 12/19/23 10:06 BP 126/72 12/19/23 10:06 Pulse Ox 98 12/19/23 10:06 Oxygen Delivery Method Room Air 12/19/23 10:06 BMI result Body Mass Index 40.0 Const General: cooperative, healthy appearing and comfortable Nutritional Appearance: obese morbidly obese Orientation/consciousness: patient oriented x3 HEENT Head: Yes normocephalic and Yes atraumatic Mouth: moist mucous membranes Resp Effort & Inspection: normal respiratory effort and able to speak in complete sentences Skin Other: Very faint flakes behind both ears Neuro General: patient oriented x3 Extrem Other: Negative MCP squeeze test bilaterally no swollen MCPs or PIPs or PIPs Right wrist pain with full extension Few fibromyalgia tender points Nail pitting in the left ring finger and right 5th finger Right 2nd and 3rd MTP tenderness . Swelling at the base of the right 2nd toe (improved compared to last visit Left 2nd 3rd and 4th MTP tenderness Tenderness upon palpation just inferior to the left medial malleolus Assessment & Plan Assessment & Plan (1) Seronegative arthritis: Comment: likely PsA MTX 06/2023 partially helpful DC 09/2023 to transaminitis and fatigue On NSAIDs Code(s): M13.80 - Other specified arthritis, unspecified site Category: Medical Plan: This is a 53-year-old female with a past medical history of breast cancer s/p lumpectomy, radiation, currently on tamoxifen who presents for evaluation of multiple joint pain.? Patient has history of skin rashes that were not confirmed as psoriasis.? Upon initial evaluation patient has few tender tendons and swollen right 2nd toe.? Some nail pitting. Comprehensive serology is negative.? Clinical picture suspicious for seronegative arthritis, likely early psoriatic arthritis.? Patient currently doing well with ibuprofen 400 once daily 3 days a week. Discussed long-term side effects of NSAIDs, such as stomach ulcers, GI bleeding, hypertension, nephrotoxicity, Increased cardiovascular events. Advised patient to use lowest effective dose. Continue to watch patient off DMARDs Labs before next visit in 6 months (2) exterminator helper (current) use of non-steroidal anti-inflammatories (nsaid): Code(s): Z79.1 - custodial (current) use of non-steroidal anti-inflammatories (NSAID) Category: Medical Plan: Monitor safety lab Plan I spent 27 minutes reviewing patient's chart, evaluating patient, ordering diagnostic workup, counseling patient and documenting in the chart Orders: Orders Complete Blood Count Auto Diff 6 Months M13.80 - Other specified arthritis, unspecified site C Reactive Protein 6 Months M13.80 - Other specified arthritis, unspecified site Comprehensive Met. Panel 6 Months M13.80 - Other specified arthritis, unspecified site Erythrocyte Sedimentation Rate 6 Months M13.80 - Other specified arthritis, unspecified site HLA B27 6 Months M45.9 - Ankylosing spondylitis of unspecified sites in spine Coding Level of Care Code Est Pt Level 4 (27399) Diagnoses Seronegative arthritis M13.80 exterminator helper (current) use of non-steroidal anti-inflammatories (nsaid) Z79.1
[2023-12-19 10:06] VITALS: BP 126/72; PULSE 75; O2SAT 98; BMI 40.0
== END 2023-12-19 10:18 | disposition home or self-care (01) ==
LOC: HO.RHE 09:55
PROVIDERS: PCP Nurse Practitioner Adult Health; Visit Provider Student in an Organized Health Care Education/Training Program
DX: M13.80 Other specified arthritis, unspecified site (principal); Z79.1 Long term (current) use of non-steroidal anti-inflammatories (NSAID)
CPT/HCPCS: 99214

== ENCOUNTER → 2023-12-19 09:55 | Outpatient (BNVA) | payer OTHER, SELFPAY | PROVIDERS: PCP Nurse Practitioner Adult Health; Visit Provider Student in an Organized Health Care Education/Training Program ==

== ENCOUNTER 2024-06-18 10:59 | Outpatient (REF) | payer OTHER, SELFPAY ==
[2024-06-18 13:35] LABS: MANUAL DIFF FLAG NO
[2024-06-18 14:04] LABS: Basophils Absolute Auto 0.1 X10*3/uL (0.0-0.2); Basophils Percent Auto 1.5 % (0-2); Eosinophils Absolute Auto 0.5 X10*3/uL (0.0-0.4); Eosinophils Percent Auto 6.7 % (0-4); Hematocrit 39.6 % (37.0-47.0); Hemoglobin 12.9 g/dl (12.0-16.0); Imm Gran Abs Auto 0.04 X10*3/uL (0.00-0.03); Imm Gran Pct Auto 0.6 % (0.0-0.4); Lymphocytes Percent Auto 29.5 % (20-40); Mean Corpuscular HGB Conc 32.6 g/dl (31.0-35.0); Mean Corpuscular Hemoglobin 29.6 pg (27.0-33.0); Mean Corpuscular Volume 90.8 fL (80.0-98.0); Mean Platelet Volume 11.2 fL (9.4-12.3); Monocytes Absolute Auto 0.6 X10*3/uL (0.1-1.2); Monocytes Percent Auto 8.3 % (2-11); Neutrophils Absolute Auto 3.6 x10*3/uL (2.0-8.3); Neutrophils Percent Auto 53.4 % (45-73); Platelet Count 142 X10*3/uL (160-400); Red Blood Count 4.36 X10*6/uL (4.20-5.50); Red Cell Distribution Width 13.2 % (11.0-16.0); White Blood Count 6.7 X10*3/uL (4.8-10.8)
[2024-06-18 14:16] LABS: Alanine Aminotransferase 21 U/L (0-31); Alkaline Phosphatase 48 U/L (39-117); Anion Gap 9 (12-20); Aspartate Amino Transferase 22 U/L (5-31); Bilirubin Total 0.3 mg/dL (0.0-1.0); Blood Urea Nitrogen 16 mg/dL (9-16); C Reactive Protein 0.23 mg/dL (< or = 0.50); Calcium 9.4 mg/dL (8.4-10.2); Carbon Dioxide 27 mmol/L (22-29); Chloride 110 mmol/L (96-108); Estimated Glomerular Filt Rate 53; Glucose Random 90 mg/dL (60-115); Potassium 4.4 mmol/L (3.3-5.1); Sodium 142 mmol/L (135-145); Total Protein 6.7 g/dL (6.5-8.0)
[2024-06-18 15:02] LABS: Erythrocyte Sedimentation Rate 5 MM/HR (0-20)
[2024-06-22 20:43] LABS: HLA B27 Negative (Negative)
--- OUTSIDE RECORDS SUMMARY | 2024-06-25 12:58 | XMS_ITS | Data Portability ---
Author Organization [facility] [address] Address [address] [place] [address] Care Team Providers Care Brush Stainer Name Role Phone LUÍS BURNS Primary Care Provider [phone] Assessment No assessment recorded. Plan of Treatment Reminders Order Date Submit Date Provider Last Modified By Organization Details Last Modified Time Details Appointments None recorded. Lab None recorded. Referral None recorded. Procedures None recorded. Surgeries None recorded. Imaging None recorded. Medication Orders Lotrisone 1 %-0.05 % topical cream 2022 023 [facility] #[id number], [address] [place], [address], 19:36:31 Augmentin 875 mg-125 mg tablet 2022 023 [facility] #[id number], [address] [place], [address], 19:36:31 Patient TargetsNo targets recorded. Patient Instructions Encounter Date Encounter Id Patient Instructions Last Modified By Organization Details Last Modified Time 10/08/2022 [id number] cellulitis: care instructions [email or web address] Not available 10/08/2022 19:36:29 Reason for Referral None Reported. Problems Name Problem SNOMED Code Status Onset Date Resolution Date Notes Provider Name and Address Organization Details Recorded Time Malignant tumor of breast 902231204 Active 023 ANGIE Jimenez [facility] 19:13:06 Bipolar disorder 52633323 Active 023 INOCENTE anderson PA [facility] 03/25/202 3 19:16:37 Psoriatic arthritis 581378541 Active 023 INOCENTE anderson, [place] - [facility] 3 19:16:46 Psoriasis 3383171 Active 023 INOCENTE anderson, [place] - [facility] 3 19:16:53 Exercise-in duced asthma 40290055 Active 023 INOCENTE anderson, [place] - [facility] 3 19:17:32 Problem Notes None recorded. Procedures Surgical History Date Name Laterality Status Provider Name and Address Organization Details Recorded Time lumpectomy of left breast completed INOCENTE CRANE PA - [facility] 10/08/2022 19:14:57 Imaging Results None recorded. Procedure Notes None recorded. Medical Equipment None Reported. Allergies Allergen ID Allergen Name Allergen Category Reaction Reaction Severity Criticality Documentation Date Start Date Code Code System Note Provider Name and Address Organization Details Recorded Time 163610 epinephri ne medicatio n Not available Not available Not available 10/08/2022 3992 RxNorm synth etic epi gives heart palpi tatio ns INOCENTE anderson, [place] - [facility] 3 19:11:32 Medications Name Sig Start Date Stop Date Status Note LastModified by Organization Details LastModified Time Augmentin 875 mg-125 mg tablet Take 1 tablet every 12 hours by oral route with meals for 10 days. 2022 active Not Available Not Available Not Avai lable Lotrisone 1 %-0.05 % topical cream APPLY TO THE AFFECTED AND SURROUNDING AREAS OF SKIN BY TOPICAL ROUTE 2 TIMES PER DAY IN THE MORNING AND EVENING FOR 2 WEEKS 2022 active Not Available Not Available Not Avai lable tamoxifen active Not Available Not Sylvia ilable Not Available gabapentin active Not Available Not Av ailable Not Available clonazepam active Not Available Not Av ailable Not Available Vitals Date Recorded Body height Body mass index (BMI) Body weight Body temperature Oxygen saturation Oxygen saturation in Arterial blood by Pulse oximetry Heart rate Respiratory rate Systolic blood pressure Diastolic blood pressure Provider Name and Address Organization Details Last Updated DateTime 172.72 cm 36.9 kg/m2 705826. 95 g 98.5 [degF] 96 % 96 % 93 /min 16 /min 136 mm[Hg] 86 mm[Hg] INOCENTE CRANE PA - [facility] 19:19:22 Social History Question Answer Notes LastModified by Organizat ion Details LastModified Time Tobacco Smoking Status Never Smoker INOCENTE anderson, [place] - [facility] 10/08/2022 19:12:50 What Is Your Level Of Alcohol Consumption? Occasional [email or web address] Information not available 10/08/2022 Which Illicit Or Recreational Drugs Have You Used? Medical Marijuana For Sleep [email or web address] Information not available 10/08/2022 Do You Use Any Illicit Or Recreational Drugs? Yes Information not available 10/08/2022 Do You Or Have You Ever Used Any Other Forms Of Tobacco Or Nicotine? No [email or web address] Information not available 10/08/2022 Sex: Unknown Functional Status None recorded. Mental Status None recorded. Family History Nothing Reported. Medical History No medical history recorded. Gynecological HistoryNo gynecological history recorded. Obstetrics History GPAL:G 0 P 0 0 0 0 Past Encounters Encounter ID Performer Location Encounter Start Date Encounter Closed Date Diagnosis/Indication Diagnosis SNOMED-CT Code Diagnosis ICD10 Code [id number] [id number] [address] 03/12/2021 14:32:25 03/12/2021 15:57:38 [id number] Kole CanalesbillyDO [address] [facility] [address] [place] [address] 10/08/2022 18:57:55 10/08/2022 19:41:31 Cellulitis of skin 898945492 L03.90 [facility] 29429230 L30. 4 Health Concerns Section Related Observation LastModified by Organization Detai ls LastModified Time None Recorded Concern Status LastModified by Organization Details LastModified Time None Recorded Advance Directives Directive None Recorded Payers Encounter Date Sequence Insurance Name Policy Number Policy Baker Covered Member ID Baker Member ID Guarantor Name 03/12/2021 1 [facility] - [employer] TYPE I (HMO) [id number] Lesly Kane [id number] Lesly Kane 10/08/2022 1 [employer] - [employer] TYPE I (HMO) [id number] Lesly Middleton [id number] Lesly Middleton Notes Date Note Type Note Provider Name and Address Organization Details Recorded Time 10/08/2022 text/html Skin Redness UCReported bypatient.Notes:[age] yo female c/o painful hot rash on L breast x 1 dnoted this afternoon and quickly became worsehas had similar in the pastno f/c/n/vno d/cno recent traumadid not take any otc meds 19 m s/p L breast lumpectomy and lymph node excision for breast CA Kole Sharma, DO [address] [place], [address], [place] - [facility] 10/08/2022 19:42:07 OBGyn Episode No OBEpisode recorded.
== END 2024-06-18 11:00 | disposition home or self-care (01) ==
LOC: HO.10HDL 10:59
PROVIDERS: Visit Provider Student in an Organized Health Care Education/Training Program
DX: M13.80 Other specified arthritis, unspecified site (principal); M45.9 Ankylosing spondylitis of unspecified sites in spine
CPT/HCPCS: 36415; 80053; 85025; 85652; 86140; 86812

== ENCOUNTER 2024-06-19 09:11 | Outpatient (AMB) | payer OTHER, SELFPAY ==
--- NOTE | 2024-06-19 09:13 | A.OFFVIS_ITS ---
Vital Signs 06/19/24 09:18 Height 5 ft 7 in Weight 258 lb 13.163 oz BMI 40.5 BP 118/80 Blood Pressure Location Rt brachial Position Sitting Respiration 16 Pulse 101 H Pulse Source Pulse Oximeter Pulse Oximetry (%) 98 Oxygen Delivery Method Room Air Intake Visit Reasons: PsA/cm Intake Note: Patient presents for PsA. Allergies lanolin Adverse Reaction (Mild, Verified 06/19/24 09:17) Skin Sensitivity epinephrine Adverse Reaction (Unknown, Verified 06/19/24 09:17) Panic attacks lisinopril Adverse Reaction (Unknown, Verified 06/19/24 09:17) Cough pseudoephedrine Adverse Reaction (Unknown, Verified 06/19/24 09:17) Unknown Medication List - Last Reconciled 06/19/24 by Grayson Sellers MD albuterol sulfate 90 mcg/actuation 2 puffs inhalation Q4-6H PRN aripiprazole 2 mg PO DAILY clonazepam 0.5 mg PO BID PRN cyclobenzaprine 5 mg PO BEDTIME PRN folic acid 1 mg PO DAILY gabapentin 300 - 600 mg PO BEDTIME ibuprofen 400 mg PO Q8H PRN tamoxifen 20 mg PO DAILY HPI Comments Details: 54-year-old female with 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 Patient states that she is overall doing reasonably well. Has been having some pain in her right thumb interphalangeal joint. Continues to have pain in her right 2nd and 3rd toes. Recently she has been having right shoulder pain. She takes ibuprofen about twice a month. She has done acupuncture and it has helped. Initial history: This is a 52-year-old female who presents for evaluation of multiple joint pain. As a child patient has had intermittent skin rashes that were diagnosed as eczema. As an adult patient kept getting recurrent skin rashes, at some point she had a rash all over her scalp, she was prescribed an antifungal shampoo which was not helpful, she was ultimately prescribed a steroid shampoo and it cleared the rash in 2 days. She was told she might have psoriasis but the diagnosis was never officially confirmed by tour escort. Currently she has a skin rash in her left breast, she gets rashes behind her ears and on her scalp. She also has a rash where she wears her ring on her left ring finger. Since her teenage years patient has been having joint and muscle pains. She mentions that she had multiple tendon injuries. She states that she got right tennis elbow multiple times but was never evaluated by a physician. She never receives steroid injections for tennis elbow. She states that she has pain and swelling of both hands, feet. Usually worse in the morning, associated with 15- 20 minutes of morning stiffness. She takes Tylenol and/or Aleve 2 to 3 times a week which provide mild to moderate relief. Stiffness improves with walking around the doing yoga. She mentions that she was prescribed a prednisone course by her PCP at some point which provided dramatic relief. She mentions that she gets these flares of generalized fatigue, generalized pain that happen every few years and can last years at a time. She was evaluated by a dish machine operator in 2014 and was prescribed meloxicam which was not very helpful but caused GI discomfort. She was evaluated by Dr. Farfan once last year but unfortunately Dr. Farfan left practice. She has history of left breast cancer diagnosed 02/2021 s/p lumpectomy and radiation. Currently on tamoxifen. She is unaware of any family history of autoimmune rheumatic disease. 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 Female Reproductive History Menstrual Total pregnancies: 0 Review of Systems Musc Reports arthralgias and Reports stiffness Physical Exam Vital Signs: Last Vital Signs Pulse 101 H 06/19/24 09:18 Resp 16 06/19/24 09:18 BP 118/80 06/19/24 09:18 Pulse Ox 98 06/19/24 09:18 Oxygen Delivery Method Room Air 06/19/24 09:18 BMI result Body Mass Index 40.5 Const General: cooperative, healthy appearing and comfortable Nutritional Appearance: obese morbidly obese Orientation/consciousness: patient oriented x3 HEENT Head: Yes normocephalic and Yes atraumatic Mouth: moist mucous membranes Resp Effort & Inspection: normal respiratory effort and able to speak in complete sentences Skin Other: No active rashes today Neuro General: patient oriented x3 Extrem Other: No wrist tenderness, swelling or pain with full flexion and extension Negative MCP squeeze test bilaterally no swollen MCPs or PIPs Mildly tender right thumb interphalangeal joint not swollen No trigger fingers today Positive empty can test on the right Right 2nd and 3rd MTP tenderness . Assessment & Plan Assessment & Plan (1) Seronegative arthritis: Comment: likely early PsA MTX 06/2023 partially helpful DC 09/2023 to transaminitis and fatigue Code(s): M13.80 - Other specified arthritis, unspecified site Category: Medical Plan: This is a 54-year-old female with a past medical history of breast cancer s/p lumpectomy, radiation, currently on tamoxifen who presents for evaluation of multiple joint pain.? Patient has history of skin rashes that were not confirmed as psoriasis.? Upon initial evaluation patient has few tender tendons and swollen right 2nd toe.? Some nail pitting. Comprehensive serology is negative.? On initial evaluation had some suspicion for mild early psoriatic arthritis. She received methotrexate for some time, could not tolerate it due to transaminitis and fatigue. Since then, Patient has not evolved into clear-cut psoriatic arthritis. She takes ibuprofen about twice a month as needed for joint pains. Her symptoms today are likely degenerative and mechanical in nature. She likely has right rotator cuff tendonitis. She will talk with her PCP and request a referral to PT Advised patient to return as needed for any new or progressive symptoms Plan I spent 17 minutes reviewing patient's chart, evaluating patient, counseling patient and documenting in the chart Coding Level of Care Code Est Pt Level 3 (32144) Diagnoses Seronegative arthritis M13.80
[2024-06-19 09:18] VITALS: BP 118/80; PULSE 101; RESP 16; O2SAT 98; BMI 40.5
== END 2024-06-19 09:45 | disposition home or self-care (01) ==
PROVIDERS: PCP Nurse Practitioner Adult Health; Visit Provider Student in an Organized Health Care Education/Training Program
DX: M13.80 Other specified arthritis, unspecified site (principal)
CPT/HCPCS: 99213